=== PATIENT | male | born 1990 | race Caucasian/White ===

== ENCOUNTER → 2020-08-18 | Emergency (ER) | payer OTHER ==
[~2020-08-18] VITALS: Ht 162.6 cm; Wt 49.9 kg
[~2020-08-18] MED LIST: RITALIN10 MG PO
[2020-08-18 20:05] VITALS: BP 115/76
== END ==
LOC: M.ERS 19:23
DX: S01.01XA Laceration without foreign body of scalp, initial encounter (principal); Z79.899 Other long term (current) drug therapy; W22.8XXA Striking against or struck by other objects, initial encounter; Y93.89 Activity, other specified; Y92.89 Other specified places as the place of occurrence of the external cause; Y99.8 Other external cause status